=== PATIENT | female | born 1980 | race Caucasian/White ===

== ENCOUNTER 2018-10-20 15:44 | Outpatient (CLI) | payer OTHER | END 2018-10-20 20:50 | disposition home or self-care (01) | LOC: OBT 15:44 → L-D 15:45 → OBT 20:50 | DX: O09.523 Supervision of elderly multigravida, third trimester (principal); Z3A.38 38 weeks gestation of pregnancy | CPT/HCPCS: 76818 ==

== ENCOUNTER 2018-10-25 14:04 | Inpatient (IN) | payer OTHER ==
[2018-10-25] MEDS ORDERED: CARBOPROST 250 MCG INJ IM (15:00)
[2018-10-25] MEDS ORDERED: IBUPROFEN 600 MG TAB PO (15:00)
[2018-10-25] MEDS ORDERED: OXYTOCIN 30 UNITS/LR 500 ML IV (15:00)
[2018-10-25] MEDS ORDERED: METHYLERGONOVINE 0.2 MG INJ IM (15:00)
[2018-10-25] MEDS: LACTATED RINGER'S 1,000 ML IV ×2 (15:54→23:51)
[2018-10-25] MEDS: AMPICILLIN 2 GM/NS (PMX) 100 ML IV (16:11)
[2018-10-25 16:15] LABS: ADD MAN DIFF? NO
[2018-10-25 16:19] LABS: WHITE BLOOD COUNT 10.2 10^3/ul (4.8-10.8)
[2018-10-25 16:19] LABS: BASOPHILS % 0.2 % (0.0-2.0); EOSINOPHILS # 0.1 10^3/ul (0.0-0.5); EOSINOPHILS % 0.6 % (0.0-7.0); HEMOGLOBIN 12.3 g/dl (12.0-16.0); LYMPHOCYTES # 1.6 10^3/ul (0.8-2.9); LYMPHOCYTES % 15.5 % (15.0-51.0); MEAN CORPUSCULAR HEMOGLOBIN 30.1 pg (29.0-33.0); MEAN CORPUSCULAR HGB CONC 34.2 g/dl (32.0-37.0); MEAN PLATELET VOLUME 9.4 fl (7.4-10.4); MONOCYTE # 0.6 10^3/ul (0.3-0.9); MONOCYTES % 5.8 % (0.0-11.0); NEUTROPHIL # 7.8 10^3/ul (1.6-7.5); NEUTROPHILS % 76.6 % (39.0-77.0); PLATELET COUNT 303 10^3/UL (140-415); RED BLOOD COUNT 4.09 10^6/ul (4.20-5.40); RED CELL DISTRIBUTION WIDTH 13.3 % (11.5-14.5)
[2018-10-25 16:30] LABS: ADD UMIC YES; UR ASCORBIC ACID NEGATIVE (NEGATIVE); UR BACTERIA FEW /HPF (NONE SEEN); UR BILIRUBIN (Dip) NEGATIVE (NEGATIVE); UR BLOOD (Dip) NEGATIVE (NEGATIVE); UR CALCIUM OXALATE CRYSTAL MODERATE /HPF (NONE SEEN); UR CLARITY CLOUDY (CLEAR); UR COLOR AMBER (YELLOW); UR GLUCOSE (Dip) NEGATIVE (NEGATIVE); UR KETONES (Dip) NEGATIVE (NEGATIVE); UR LEUKOCYTE ESTERASE (Dip) 3+ Leu/ul (NEGATIVE); UR MUCUS MODERATE /HPF (NONE SEEN); UR NITRITE (Dip) NEGATIVE (NEGATIVE); UR RBC 9 /HPF (0-5); UR SPECIFIC GRAVITY (Dip) 1.027 (1.003-1.030); UR SQUAMOUS EPITHELIAL CELL MANY /HPF (FEW); UR TOTAL PROTEIN (Dip) 1+ mg/dl (NEGATIVE); UR UROBILINOGEN (Dip) NEGATIVE (NEGATIVE); UR WBC 21 /HPF (0-5)
[2018-10-25 16:38] LABS: INR 0.86; PARTIAL THROMBOPLASTIN TIME 25.8 Sec (23.0-35.0); PROTIME 11.8 Sec (11.9-14.9); PT RATIO 0.9
[2018-10-25 16:41] LABS: ALANINE AMINOTRANSFERASE 23 IU/L (13-69); ALBUMIN 3.3 g/dl (3.3-4.9); ALBUMIN/GLOBULIN RATIO 1.03; ALKALINE PHOSPHATASE 144 IU/L (42-121); ANION GAP 6 (5-13); ASPARTATE AMINO TRANSFERASE 24 IU/L (15-46); BILIRUBIN,INDIRECT 0.2 mg/dl (0-1.1); BILIRUBIN,TOTAL 0.2 mg/dl (0.2-1.3); BLOOD UREA NITROGEN 13 mg/dl (7-20); CALCIUM 9.4 mg/dl (8.4-10.2); CARBON DIOXIDE 23 mmol/L (21-31); CHLORIDE 104 mmol/L (97-110); CREATININE 0.64 mg/dl (0.44-1.00); Estimated GFR > 60 mL/min (>60); GLUCOSE 90 mg/dl (70-220); POTASSIUM 4.3 mmol/L (3.5-5.1); SODIUM 133 mmol/L (135-144); TOTAL PROTEIN 6.5 g/dl (6.1-8.1)
[2018-10-25] MEDS: MISOPROSTOL 50 MCG CAPSULE PO ×2 (16:58→21:03)
[2018-10-25 17:29] LABS: ALANINE AMINOTRANSFERASE 21 IU/L (13-69); ALBUMIN 3.4 g/dl (3.3-4.9); ALKALINE PHOSPHATASE 143 IU/L (42-121); ASPARTATE AMINO TRANSFERASE 27 IU/L (15-46); BILIRUBIN,INDIRECT 0.2 mg/dl (0-1.1); BILIRUBIN,TOTAL 0.2 mg/dl (0.2-1.3); TOTAL PROTEIN 6.5 g/dl (6.1-8.1)
[2018-10-25 18:12] LABS: HEPATITIS B SURFACE ANTIGEN NEGATIVE (NEGATIVE)
[2018-10-25] MEDS: AMPICILLIN 1 GM/NS (PMX) 50 ML IV ×2 (20:10→23:51)
[2018-10-26] MEDS: MISOPROSTOL 50 MCG CAPSULE PO ×4 (01:17→14:54)
[2018-10-26] MEDS: AMPICILLIN 1 GM/NS (PMX) 50 ML IV ×4 (04:08→21:22)
[2018-10-26] MEDS: LACTATED RINGER'S 1,000 ML IV ×2 (07:34→17:20)
[2018-10-26] MEDS: MAGNESIUM SULFATE 4 GM/100 ML 100 ML IVPB (11:30)
[2018-10-26] MEDS ORDERED: MAGNESIUM SULFATE 20 GM/500 ML 500 ML IV (11:30)
[2018-10-26] MEDS ORDERED: ACETAMINOPHEN 325 MG TAB PO (12:00)
[2018-10-26 12:17] LABS: URIC ACID 5.4 mg/dl (3.1-7.9)
[2018-10-26 12:20] LABS: ALANINE AMINOTRANSFERASE 21 IU/L (13-69); ALBUMIN 3.2 g/dl (3.3-4.9); ALBUMIN/GLOBULIN RATIO 1.14; ALKALINE PHOSPHATASE 151 IU/L (42-121); ANION GAP 4 (5-13); ASPARTATE AMINO TRANSFERASE 23 IU/L (15-46); BILIRUBIN,INDIRECT 0.4 mg/dl (0-1.1); BILIRUBIN,TOTAL 0.4 mg/dl (0.2-1.3); BLOOD UREA NITROGEN 9 mg/dl (7-20); CALCIUM 9.2 mg/dl (8.4-10.2); CARBON DIOXIDE 22 mmol/L (21-31); CHLORIDE 106 mmol/L (97-110); CREATININE 0.53 mg/dl (0.44-1.00); Estimated GFR > 60 mL/min (>60); GLUCOSE 108 mg/dl (70-220); POTASSIUM 4.1 mmol/L (3.5-5.1); SODIUM 132 mmol/L (135-144)
[2018-10-26 12:29] LABS: ADD UMIC YES; UR ASCORBIC ACID NEGATIVE (NEGATIVE); UR BILIRUBIN (Dip) NEGATIVE (NEGATIVE); UR BLOOD (Dip) 1+ mg/dL (NEGATIVE); UR CLARITY CLEAR (CLEAR); UR COLOR STRAW (YELLOW); UR GLUCOSE (Dip) NEGATIVE (NEGATIVE); UR KETONES (Dip) NEGATIVE (NEGATIVE); UR LEUKOCYTE ESTERASE (Dip) 2+ Leu/ul (NEGATIVE); UR NITRITE (Dip) NEGATIVE (NEGATIVE); UR RBC 1 /HPF (0-5); UR SPECIFIC GRAVITY (Dip) 1.005 (1.003-1.030); UR SQUAMOUS EPITHELIAL CELL FEW /HPF (FEW); UR TOTAL PROTEIN (Dip) NEGATIVE (NEGATIVE); UR UROBILINOGEN (Dip) NEGATIVE (NEGATIVE); UR WBC 6 /HPF (0-5)
[2018-10-26 15:35] LABS: RAPID PLASMA REAGIN NONREACTIVE (NR)
[2018-10-27] MEDS: AMPICILLIN 1 GM/NS (PMX) 50 ML IV ×2 (01:14→05:36)
[2018-10-27] MEDS: LACTATED RINGER'S 1,000 ML IV ×2 (01:14→06:37)
[2018-10-27] MEDS: BUTORPHANOL 2 MG INJ IV (01:24)
[2018-10-27] MEDS ORDERED: ONDANSETRON 4 MG INJ IV ×2 (03:30→08:30)
[2018-10-27] MEDS ORDERED: KETOROLAC 30 MG INJ IV (03:30)
[2018-10-27] MEDS ORDERED: FENTAnyl 2MCG/ML-ROPIV 0.2% 100 ML BAG EPI (03:30)
[2018-10-27] MEDS ORDERED: DIPHENHYDRAMINE 50 MG INJ IV (03:30)
[2018-10-27] MEDS ORDERED: HYDROmorphONE 0.5 MG/0.5 ML SYG IV ×2 (03:30)
[2018-10-27] MEDS ORDERED: NALOXONE (0.4 MG/ML) INJ IV (03:30)
[2018-10-27] MEDS: LIDOCAINE 1% (MPF) 30 ML INJ INJ (08:14)
[2018-10-27] MEDS: MINERAL OIL LIGHT 10 ML VIAL TOP (08:15)
[2018-10-27] MEDS: OXYTOCIN 30 UNITS/LR 500 ML IV ×3 (08:21→13:37)
[2018-10-27] MEDS: MISOPROSTOL 200 MCG TAB PR (08:25)
[2018-10-27] MEDS ORDERED: OXYTOCIN 30 UNITS/LR 500 ML IV (08:30)
[2018-10-27] MEDS ORDERED: METHYLERGONOVINE 0.2 MG INJ IM (08:30)
[2018-10-27] MEDS ORDERED: MISOPROSTOL 200 MCG TAB PR (08:30)
[2018-10-27] MEDS ORDERED: OXYCODONE/ASPIRIN (4.88/325) TAB PO (08:30)
[2018-10-27] MEDS ORDERED: NACL 0.9% 3 ML SYG IV (08:30)
[2018-10-27] MEDS ORDERED: CARBOPROST 250 MCG INJ IM (08:30)
[2018-10-27] MEDS ORDERED: ACETAMINOPHEN 325 MG TAB PO (08:30)
[2018-10-27] MEDS: LANOLIN HPA 1 PKT TOP (13:31)
[2018-10-27] MEDS: IBUPROFEN 600 MG TAB PO ×2 (13:31→18:29)
[2018-10-27] MEDS: SENNA/DOCUSATE NA (8.6MG/50MG) TAB PO (13:32)
[2018-10-27] MEDS: WITCH HAZEL/GLYCERIN PAD PR (13:38)
[2018-10-27] MEDS: BENZOCAINE 20% 56 ML SPRAY TOP (13:38)
[2018-10-28] MEDS: IBUPROFEN 600 MG TAB PO ×5 (00:20→23:43)
[2018-10-28] MEDS: SENNA/DOCUSATE NA (8.6MG/50MG) TAB PO ×3 (00:20→20:54)
[2018-10-28 09:34] LABS: ADD MAN DIFF? NO
[2018-10-28 09:43] LABS: BASOPHILS % 0.3 % (0.0-2.0); EOSINOPHILS # 0.1 10^3/ul (0.0-0.5); EOSINOPHILS % 0.8 % (0.0-7.0); HEMATOCRIT 33.8 % (37.0-47.0); HEMOGLOBIN 11.2 g/dl (12.0-16.0); LYMPHOCYTES # 1.9 10^3/ul (0.8-2.9); LYMPHOCYTES % 16.8 % (15.0-51.0); MEAN CORPUSCULAR HEMOGLOBIN 29.7 pg (29.0-33.0); MEAN CORPUSCULAR HGB CONC 33.1 g/dl (32.0-37.0); MEAN CORPUSCULAR VOLUME 89.7 fl (82.0-101.0); MEAN PLATELET VOLUME 9.3 fl (7.4-10.4); MONOCYTE # 0.6 10^3/ul (0.3-0.9); MONOCYTES % 5.4 % (0.0-11.0); NEUTROPHIL # 8.5 10^3/ul (1.6-7.5); NEUTROPHILS % 74.9 % (39.0-77.0); PLATELET COUNT 281 10^3/UL (140-415); RED BLOOD COUNT 3.77 10^6/ul (4.20-5.40); RED CELL DISTRIBUTION WIDTH 13.7 % (11.5-14.5)
[2018-10-28 09:43] LABS: WHITE BLOOD COUNT 11.4 10^3/ul (4.8-10.8)
[2018-10-29] MEDS: IBUPROFEN 600 MG TAB PO ×2 (05:27→11:54)
[2018-10-29] MEDS: SENNA/DOCUSATE NA (8.6MG/50MG) TAB PO (09:00)
[2018-10-29] MEDS: WITCH HAZEL/GLYCERIN PAD PR (11:57)
[2018-10-29] MEDS: BENZOCAINE 20% 56 ML SPRAY TOP (11:57)
== END 2018-10-29 15:10 | disposition home or self-care (01) | DRG 806 ==
LOC: L-D 14:04 → PP1 10-27 10:26 → L-D 14:33 → PP1 10-27 18:41
PROVIDERS: Obstetrics & Gynecology
PROC: 10E0XZZ Delivery of Products of Conception, External Approach (ICD-10-PCS; principal; 2018-10-27)
PROC: 0W8NXZZ Division of Female Perineum, External Approach (ICD-10-PCS; 2018-10-27)
PROC: 3E0P7VZ Introduction of Hormone into Female Reproductive, Via Natural or Artificial Opening (ICD-10-PCS; 2018-10-27)
DX: O13.3 Gestational [pregnancy-induced] hypertension without significant proteinuria, third trimester (principal); Z68.42 Body mass index [BMI] 45.0-49.9, adult; Z37.0 Single live birth; O99.213 Obesity complicating pregnancy, third trimester; Z3A.39 39 weeks gestation of pregnancy
CPT/HCPCS: 62322; 76815; 80053; 80076; 81001; 84560; 85025; 85384; 85610; 85730; 86592; 86850; 86900; 86901; 87340